=== PATIENT | female | born 1970 | race Two or more races ===

== ENCOUNTER 2024-11-25 16:46 | Emergency (ER) | payer OTHER ==
[~2024-11-25] VITALS: Ht 162.6 cm; Wt 81.6 kg
[2024-11-25 17:37] VITALS: BP 143/85; O2SAT 99
[2024-11-25] MEDS ORDERED: XANAX XR0.5 MG PO (17:40)
[2024-11-25 18:51] LABS: BASO % 0.4 % (0.1-1.2); EOS # 0.12 (0.04-0.54); EOS % 1.1 % (0.7-7.0); LYMPH # 4.12 (1.18-3.74); LYMPH % 36.2 % (19.3-53.1); MEAN PLATELET VOLUME 9.90 fl (9.4-12.4); MONO # 0.65 (0.24-0.82); MONO % 5.7 % (4.7-12.5); NEUT # 6.43 (1.56-6.13); NEUT % 56.3 % (34.0-71.1); RED CELL DISTRIBUTION WIDTH 13.2 % (11.6-14.4)
[2024-11-25 18:58] LABS: ABG PH 7.448 (7.35-7.45); ABG PO2 110.4 mmHg (80-100); BICARBONATE 22.4 mmol/l (23-25)
[2024-11-25 19:05] LABS: COVID-19 AG NEGATIVE (NEGATIVE)
[2024-11-25 19:33] LABS: ALT/SGPT 87.0 U/L (12-78); AST/SGOT 53.0 U/L (15-37); BILIRUBIN TOTAL 0.39 mg/dL (0.3-1.2); BUN CREA RATIO 21.0 (7.0-25.0); CREATININE SERUM 0.66 mg/dL (0.55-1.02); GFR 93.33; GLOBULINA 4.2 G/DL (2.4-3.5); GLUCOSE FASTING 99.0 mg/dL (65-100); OSMOLALITY SERUM 284.0 MOSM/KG (275-295)
[2024-11-25 20:05] LABS: o2 21 %
== END 2024-11-25 21:29 | disposition home or self-care (01) ==
LOC: ER 16:46
PROVIDERS: General Practice
DX: R06.02 Shortness of breath (principal); Z20.822 Contact with and (suspected) exposure to COVID-19; Z88.0 Allergy status to penicillin